=== PATIENT | female | born 2005 | race Caucasian/White ===

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

== ENCOUNTER → 2024-05-31 | Outpatient (CLI) | payer OTHER ==
[2024-05-31 16:33] LABS: HEMATOCRIT 44.1 % (37.0-47.0); MEAN CELL VOLUME 88.4 fl (81.0-99.0); MEAN CORPUSCULAR HGB 29.1 pg (27.0-31.0); MEAN CORPUSCULAR HGB CONC 32.9 g/dl (33.0-37.0); RED BLOOD COUNT 4.99 10*6/uL (4.10-5.10); RED CELL DISTRI WIDTH 12.2 % (0-14.5); WHITE BLOOD COUNT 6.1 10*3/uL (4.8-10.8)
[2024-05-31 17:20] LABS: ALKALINE PHOSPHATASE 77 U/L (46-116); BUN 9 mg/dl (9-23); CHLORIDE 105 mmol/L (98-107); CHOLESTEROL 158 mg/dL (<200); LDL CHOLESTEROL 92 mg/dL (9-159); POTASSIUM 3.8 mmol/L (3.4-5.1); SGPT/ALT 11 U/L (5-49); TOTAL PROTEIN 7.6 gm/dL (6.0-8.0); TRIGLYCERIDES 92 mg/dl (<150)
== END | disposition home or self-care (01) ==
LOC: LAB 16:10
PROVIDERS: ATTEND Family Medicine
DX: Z13.220 Encounter for screening for lipoid disorders (principal); R53.82 Chronic fatigue, unspecified; R68.84 Jaw pain; J02.9 Acute pharyngitis, unspecified